=== PATIENT | female | born 1995 | race Hispanic/Latino ===

== ENCOUNTER 2024-10-21 04:12 | Observation (INO) | payer SELFPAY ==
[2024-10-21] MEDS ORDERED: ONDANSETRON 4 MG/2 ML VIAL ONE (05:03)
[2024-10-21] MEDS ORDERED: FAMOTIDINE 20 MG/2 ML VIAL IV ONE (05:03)
[2024-10-21] MEDS ORDERED: KETOROLAC 30 MG/ML INJ ONE (05:03)
[2024-10-21] MEDS ORDERED: NA CHLORIDE 0.9% 1,000 ML ONE (05:04)
[2024-10-21 05:09] LABS: Absolute Basophils 0.1 K/uL (0-0.5); Absolute Eosinophils 0.5 K/uL (0-0.5); Absolute Lymphocytes (CBC) 3.3 K/uL (0.7-4.9); Absolute Monocytes 0.9 K/uL (0.1-1.3); Absolute Neutrophil 8.5 K/uL (1.8-8.0); Basophils % 0.5 % (0-1.3); Eosinophils % 3.9 % (0-4.4); Hematocrit 39.6 % (36.0-45.0); Hemoglobin 13.6 g/dL (12.0-15.0); Lymphocytes % 24.9 % (15.3-44.8); MCHC 34.4 g/dL (32.0-36.0); MCV 87.3 fL (80-100); MPV 7.4 fL (7.6-11.3); Monocytes % 6.8 % (3.3-12.3); Neutrophils % 63.9 % (41.7-73.7); Nucleated Red Blood Cells % 0.1 % (0-0); Platelets 363 thou/uL (152-406); RBC Red Blood Cell Count 4.54 M/uL (3.86-4.86); Red Cell Distribution Width 14.3 % (12.1-15.2)
[2024-10-21 05:13] LABS: Specific Gravity 1.027 (1.005-1.030); Specific Gravity 1.028 (1.005-1.030); Sqamous Epithelial <5 /HPF (None Seen); Urine Bacteria None Seen /HPF (<20); Urine Bilirubin NEGATIVE (Negative); Urine Blood 1+ (Negative); Urine Clarity Clear (Clear); Urine Color Light-Yellow (Yellow); Urine Culture Reflex Order NOT NEEDED; Urine Glucose NEGATIVE (Negative); Urine Ketones NEGATIVE (Negative); Urine Microscopic Reflex YN ORDER UMIC; Urine Mucus Slight /HPF (None Seen); Urine Nitrite NEGATIVE (Negative); Urine Protein NEGATIVE (Negative); Urine Urobilinogen Normal (Normal); Urine WBC <5 /HPF (<5); Urine pH 5.5 (5.0-7.0)
[2024-10-21 05:30] LABS: Albumin 3.9 g/dL (3.4-5.0); Anion Gap 7.7 mEq/L (5.0-15.0); Bilirubin Total 0.3 mg/dL (0.2-1.0); Globulin 3.8 g/dL (2.3-3.5); Potassium 3.7 mEq/L (3.5-5.1); Protein, Total 7.7 g/dL (6.4-8.2)
[2024-10-21] MEDS ORDERED: droPERidol 5 MG/2 ML VIAL ONE (06:25)
--- NOTE | 2024-10-21 06:43 | RAD REPORT ---
EXAMINATION: Abdomen Pelvis W Contrast CLINICAL INDICATION: Female, 29 years old.ABD PAIN TECHNIQUE: CT abdomen and pelvis was performed, after the administration of IV contrast, as per depar count [facility]. Axial, sagittal and coronal reconstructions were obtained. One or more of the following dose reduction techniques were used: Automated exposure control, adjustment of the mA and/o r kV according to patient size, and/or iterative reconstruction. Unless otherwise specified, incidental findings do not require dedicated imaging follow-up. [id number]. COMPARISON: No prior exam. FINDINGS: LOWER CHEST: No acute process identified.No significant pericardial effusion. UPPER GI: Dilated gallbladder with cholelithiasis. No definite wall thickening or pericholecystic inf lammatory changes. There are stones in the region of the gallbladder neck. LIVER: No significant focal abnormality. GALLBLADDER/BILE DUCTS: No biliary ductal dilatation.? PANCREAS: No mass, ductal dilation, or verito-pancreatic fluid. SPLEEN: Unremarkable. ADRENALS: No adrenal masses. KIDNEYS AND URETERS: No hydronephrosis.No suspicious renal mass. ABDOMINAL AORTA AND OTHER VESSELS: Normal caliber aorta and IVC. PERITONEUM: No abnormal free fluid. No free air. LYMPH NODES: No pathologic lymphadenopathy. ABDOMINAL WALL: Unremarkable SMALL BOWEL/COLON: Small bowel has normal course and caliber. No colonic wall thickening or pericolon ic inflammatory changes. URINARY BLADDER: Underdistended but grossly unremarkable. REPRODUCTIVE ORGANS: No pathologic process. MUSCULOSKELETAL: No acute or suspicious osseous abnormality. ADDITIONAL FINDINGS: None. IMPRESSION: Cholelithiasis with dilated gallbladder and stone impacted near the gallbladder neck. No significant pericholecystic inflammatory changes however early or mild acute cholecystitis may still be present.
--- NOTE | 2024-10-21 08:25 | ER ---
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 Coronavirus screen: Client denies travel out of the [place] in the last 14 days. At this time, the client does not indicate any symptoms associated with coronavirus-19. Ebola Screen: Patient negative for fever greater than or equal to 101.5 degrees Fahrenheit, and additional compatible Ebola Virus Disease symptoms Patient denies exposure to infectious person. Patient denies travel to an Ebola-affected area in the 21 days before illness onset. No symptoms or risks identified at this time. Initial Sepsis Screen: Does the patient meet any 2 criteria? No. Patient's initial sepsis screen is negative. Does the patient have a suspected source of infection? No. Patient's initial sepsis screen is negative. Risk Assessment: Do you want to hurt yourself or someone else? Patient reports no desire to harm self or others. Onset of symptoms was October 20, 2024 at 22:00. 04:41 Method Of Arrival: Ambulatory vc1 04:41 Acuity: ASHLEY 3 vc1 Triage Assessment: 04:36 General: Appears distressed, uncomfortable, obese, well groomed, well developed, vc1 Behavior is cooperative, restless. Pain: Complains of pain in epigastric area Pain does not radiate. Pain currently is 10 out of 10 on a pain scale. Quality of pain is described as sharp, Noted to be restless, Also complains of nausea. EENT: No deficits noted. No signs and/or symptoms were reported regarding the EENT system. Neuro: Level of Consciousness is awake, alert, obeys commands, Oriented to person, place, time, situation, Appropriate for age. Cardiovascular: Heart tones S1 S2 present Capillary refill < 3 seconds Patient's skin is warm and dry. Respiratory: Airway is patent Respiratory effort is even, unlabored, Respiratory pattern is regular, symmetrical, Breath sounds are clear bilaterally. GI: Abdomen is non-distended, Reports diarrhea, epigastric pain, nausea, vomiting. : No deficits noted. No signs and/or symptoms were reported regarding the genitourinary system. Derm: Skin is intact, is healthy with good turgor, Skin is dry, Skin is normal, Skin temperature is warm. Musculoskeletal: Circulation, motion, and sensation intact. Range of motion: intact in all extremities. 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 - Infectious Disease History:: Denies. - Social history:: Smoking status: Patient denies any tobacco usage or history of. - Family history:: not pertinent. Screenin:12 [facility] ED Fall Risk Assessment (Adult) History of falling in the last 3 months, al5 including since admission No falls in past 3 months (0 pts) Confusion or Disorientation No (0 pts) Intoxicated or Sedated No (0 pts) Impaired Gait No (0 pts) Mobility Assist Device Used No (0 pt) Altered Elimination No (0 pt) Score/Fall Risk Level 0 - 2 = Low Risk Oriented to surroundings, Maintained a safe environment, Hourly rounding (assess needs \T\ fall precautionary measures) done. Abuse screen: Denies threats or abuse. Denies injuries from another. Nutritional screening: No deficits noted. Tuberculosis screening: No symptoms or risk factors identified. Assessment: 05:11 General: Appears in no apparent distress. uncomfortable, Behavior is calm, cooperative. al5 Pain: Complains of pain in epigastric area Pain currently is 8 out of 10 on a pain scale. Neuro: Level of Consciousness is awake, alert, obeys commands, Oriented to person, place, time, situation. Cardiovascular: Capillary refill < 3 seconds Patient's skin is warm and dry. Respiratory: Airway is patent Respiratory effort is even, unlabored, Respiratory pattern is regular, symmetrical. GI: Abdomen is flat, non-distended, Bowel sounds present X 4 quads. Abd is soft X 4 quads Abdomen is tender to palpation in epigastric area Reports upper abdominal pain, diarrhea, nausea, vomiting. : No signs and/or symptoms were reported regarding the genitourinary system. EENT: No signs and/or symptoms were reported regarding the EENT system. Derm: Skin is intact, is healthy with good turgor, Skin is pink, warm \T\ dry. normal. Musculoskeletal: No signs and/or symptoms reported regarding the musculoskeletal system. 06:15 Reassessment: Patient appears in no apparent distress at this time. Patient and/or al5 family updated on plan of care and expected duration. Pain level reassessed. Patient is alert, oriented x 3, equal unlabored respirations, skin warm/dry/pink. pain has decreased but pain still present. 07:43 Reassessment: Patient appears in no apparent distress at this time. No changes from kc6 previously documented assessment. Patient and/or family updated on plan of care and expected duration. Pain level reassessed. Patient is alert, oriented x 3, equal unlabored respirations, skin warm/dry/pink. 08:43 Reassessment: Patient appears in no apparent distress at this time. No changes from kc6 previously documented assessment. Patient and/or family updated on plan of care and expected duration. Pain level reassessed. Patient is alert, oriented x 3, equal unlabored respirations, skin warm/dry/pink. 09:43 Reassessment: Patient appears in no apparent distress at this time. No changes from kc6 previously documented assessment. Patient and/or family updated on plan of care and expected duration. Pain level reassessed. Patient is alert, oriented x 3, equal unlabored respirations, skin warm/dry/pink. Vital Signs: 04:41 BP 130 / 89; Pulse 66; Resp 14; Temp 98.9; Pulse Ox 100% ; Weight 78 kg; Height 5 ft. 0 vc1 in. ; Pain 10/10; 05:30 BP 117 / 72; Pulse 64; Resp 18; Pulse Ox 100% ; al5 06:00 BP 99 / 58; Pulse 59; Resp 16; Pulse Ox 100% ; al5 06:30 BP 101 / 61; Pulse 69; Resp 16; Pulse Ox 100% ; al5 06:59 BP 101 / 61; Pulse 62; Resp 18 S; Pulse Ox 100% on R/A; br2 07:43 BP 113 / 61; Pulse 60; Resp 18 S; Pulse Ox 99% on R/A; kc6 04:41 Body Mass Index 33.58 (78.00 kg, 152.4 cm) vc1 04:41 Pain Scale: Adult vc1 [place] Coma Score: 10/22 04:51 Eye Response: spontaneous(4). Motor Response: obeys commands(6). Verbal Response: sp4 oriented(5). Total: 15. ED Course: 10/21 04:15 Patient arrived in ED. jj6 04:43 Triage completed. vc1 04:44 Arm band placed on right wrist. vc1 04:49 Michele Allen MD is Attending Physician. sp4 04:50 Roxanne Brock, RN is Primary Nurse. al5 05:12 Patient has correct armband on for positive identification. Bed in low position. Call al5 light in reach. Side rails up X 1. Provided Education on: plan of care. 05:12 No provider procedures requiring assistance completed. Inserted saline lock: 20 gauge al5 in right antecubital area, using aseptic technique. Blood collected. Flushed with 10 mL NS. 06:13 CT Abd/Pelvis - IV Contrast Only In Process Unspecified. EDMS 07:00 Pulse ox on. NIBP on. Door closed. Noise minimized. Lights dimmed. Warm blanket given. kc6 Pillow given. Verbal reassurance given. 08:23 Jeremy Deluca is Hospitalizing Provider. sp4 08:44 Primary Nurse role handed off by Roxanne Brock, RN ll1 10:04 Patient admitted, IV remains in place. kc6 Administered Medications: 05:10 Drug: Famotidine IVP 20 mg IVP once; dilute with 10 mL 0.9% NaCl; give over 2 minutes al5 Route: IVP; Site: right antecubital; 07:45 Follow up: Response: No adverse reaction kc6 05:10 Drug: Ondansetron IVP 4 mg IVP once; over 2 minutes Route: IVP; Site: right antecubital;al5 07:44 Follow up: Response: No adverse reaction kc6 05:11 Drug: TORadol - Ketorolac IVP 15 mg IVP once Route: IVP; Site: right antecubital; al5 07:44 Follow up: Response: No adverse reaction kc6 05:11 Drug: NS 0.9% IV 1000 ml IV at 1 bolus Per protocol; to be given as a bolus over 60 al5 minutes Route: IV; Rate: 1 bolus; Site: right antecubital; 07:45 Follow up: Response: No adverse reaction; IV Status: Completed infusion; IV Intake: kc6 1000ml 06:30 Drug: Droperidol IVP 2.5 mg IVP once Route: IVP; Site: right antecubital; al5 07:44 Follow up: Response: No adverse reaction kc6 08:39 Drug: Piperacillin-Tazobactam IVPB 3.375 grams IVPB once over 60 mins; (mix in NS 100 kc6 mL) Route: IVPB; Infused Over: 60 mins; Site: right antecubital; 10:03 Follow up: Response: No adverse reaction; IV Status: Completed infusion; IV Intake: kc6 100ml 10:03 Drug: D5-NS IV 1000 ml IV at 125 ml/hr continuous Route: IV; Rate: 125 ml/hr; Site: kc6 right antecubital; 10:03 Follow up: Response: No adverse reaction; IV Status: Infusion continued upon admission; kc6 IV Intake: 1000ml Medication: 05:12 VIS not applicable for this client. al5 Intake: 07:45 IV: 1000ml; Total: 1000ml. kc6 10:03 IV: 100ml; Total: 1100ml. kc6 10:03 IV: 1000ml; Total: 2100ml. kc6 Outcome: 08:25 Decision to Hospitalize by Provider. sp4 10:04 Admitted to Med/surg accompanied by tech, via wheelchair, with chart, kc6 10:04 Condition: good 10:04 Instructed on the need for admit, 10:04 Patient left the ED. kc6 Signatures: Dispatcher [employer] EDMS Lilia York RN RN ll1 Gill Graves jj6 Violette Crawford RN RN vc1 Korina Moreira RN RN kc6 Michele Allen MD MD sp4 Roaxnne Brock RN RN al5 Vee Hayward RN RN br2 Corrections: (The following items were deleted from the chart) 06:49 05:29 BP 117 / 72; Pulse 64bpm; Resp 18bpm; Pulse Ox 100%; br2 al5
--- NOTE | 2024-10-21 08:25 | EDPHYS ---
Physician Documentation [facility] Name: Nathaly Yañez Age: 29 yrs Sex: Female : 1995 Arrival Date: 10/21/2024 Time: 04:12 Bed 8 Private MD: ED Physician Michele Allen HPI: 10/21 04:49 This 29 yrs old Female presents to ER via Ambulatory with complaints of sp4 Abdominal Pain. 10/22 04:51 29-year-old female presents with acute upper abdominal pain mostly on the right sp4 associated with vomiting. 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 - Infectious Disease History:: Denies. - Social history:: Smoking status: Patient denies any tobacco usage or history of. - Family history:: not pertinent. ROS: 10/22 04:51 Constitutional: Negative for fever, chills, and weight loss, positive upper abdominal sp4 pain, positive vomiting All other systems are negative, Exam: 04:51 Constitutional: This is a well developed, well nourished patient who is awake, alert, sp4 and in no acute distress. Head/Face: Normocephalic, atraumatic. Eyes: Pupils equal round and reactive to light, extra-ocular motions intact. Lids and lashes normal. Conjunctiva and sclera are not injected. Cornea within normal limits. Periorbital areas with no swelling, redness, or edema. ENT: Nares patent. No nasal discharge, no septal abnormalities noted. Tympanic membranes are normal and external auditory canals are clear. Oropharynx with no redness, swelling, or masses, exudates, or evidence of obstruction, uvula midline. Mucous membranes moist. Neck: Trachea midline, no thyromegaly or masses palpated, and no cervical lymphadenopathy. Supple, full range of motion without nuchal rigidity, or vertebral point tenderness. Chest/axilla: Normal chest wall appearance and motion. Nontender with no deformity. No lesions are appreciated. Cardiovascular: Regular rate and rhythm with a normal S1 and S2. No gallops, murmurs, or rubs. Normal PMI, no JVD. No pulse deficits. Respiratory: Lungs have equal breath sounds bilaterally, clear to auscultation and percussion. No rales, rhonchi or wheezes noted. No increased work of breathing, no retractions or nasal flaring. Abdomen/GI: Soft, with normal bowel sounds. No distension or tympany. Positive right upper abdominal tenderness with guarding Back: No spinal tenderness. No costovertebral tenderness. Skin: Warm, dry with normal turgor. Normal color with no rashes, no lesions, and no evidence of cellulitis. MS/ Extremity: Pulses equal, no cyanosis. Neurovascular intact. Full, normal range of motion. Neuro: Awake and alert, GCS 15, oriented to person, place, time, and situation. Cranial nerves II-XII grossly intact. Motor strength 5/5 in all extremities. Sensory grossly intact. Psych: Awake, alert, with orientation to person, place and time. Behavior, mood, and affect are within normal limits Vital Signs: 10/21 04:41 BP 130 / 89; Pulse 66; Resp 14; Temp 98.9; Pulse Ox 100% ; Weight 78 kg; Height 5 ft. 0 vc1 in. ; Pain 10/10; 05:30 BP 117 / 72; Pulse 64; Resp 18; Pulse Ox 100% ; al5 06:00 BP 99 / 58; Pulse 59; Resp 16; Pulse Ox 100% ; al5 06:30 BP 101 / 61; Pulse 69; Resp 16; Pulse Ox 100% ; al5 06:59 BP 101 / 61; Pulse 62; Resp 18 S; Pulse Ox 100% on R/A; br2 07:43 BP 113 / 61; Pulse 60; Resp 18 S; Pulse Ox 99% on R/A; kc6 04:41 Body Mass Index 33.58 (78.00 kg, 152.4 cm) vc1 04:41 Pain Scale: Adult vc1 [place] Coma Score: 10/22 04:51 Eye Response: spontaneous(4). Motor Response: obeys commands(6). Verbal Response: sp4 oriented(5). Total: 15. MDM: 10/21 04:50 Medical Screening Exam initiated sp4 08:15 ED course: COMPARISON: No prior exam. FINDINGS: LOWER CHEST: No acute process sp4 identified.No significant pericardial effusion. UPPER GI: Dilated gallbladder with cholelithiasis. No definite wall thickening or pericholecystic inflammatory changes. There are stones in the region of the gallbladder neck. LIVER: No significant focal abnormality. GALLBLADDER/BILE DUCTS: No biliary ductal dilatation.? PANCREAS: No mass, ductal dilation, or verito-pancreatic fluid. SPLEEN: Unremarkable. ADRENALS: No adrenal masses. KIDNEYS AND URETERS: No hydronephrosis.No suspicious renal mass. ABDOMINAL AORTA AND OTHER VESSELS: Normal caliber aorta and IVC. PERITONEUM: No abnormal free fluid. No free air. LYMPH NODES: No pathologic lymphadenopathy. ABDOMINAL WALL: Unremarkable SMALL BOWEL/COLON: Small bowel has normal course and caliber. No colonic wall thickening or pericolonic inflammatory changes. URINARY BLADDER: Underdistended but grossly unremarkable. REPRODUCTIVE ORGANS: No pathologic process. MUSCULOSKELETAL: No acute or suspicious osseous abnormality. ADDITIONAL FINDINGS: None. IMPRESSION: Cholelithiasis with dilated gallbladder and stone impacted near the gallbladder neck. No significant pericholecystic inflammatory changes however early or mild acute cholecystitis may still be present. . 10/22 04:51 Differential diagnosis: appendicitis, bowel obstruction, cholecystitis, Cholelithiasis, sp4 diverticulitis. Data reviewed: vital signs, nurses notes, lab test result(s), radiologic studies. Consideration of Admission/Observation Patient was admitted/placed on observation. Escalation of care including admission/observation considered. Management of patient was discussed with the following: Hospitalist: Admission team. 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 ED course: Stable for admission.. 10/21 04:50 Order name: CBC with Diff; Complete Time: 08:10 sp4 10/21 04:50 Order name: CMP; Complete Time: 08:10 sp4 10/21 04:50 Order name: Lipase; Complete Time: 08:10 sp4 10/21 04:50 Order name: Test, Urine; Complete Time: 08:10 sp4 10/21 04:50 Order name: Urinalysis w/ reflexes; Complete Time: 08:10 sp4 10/21 08:54 Order name: CBC with Automated Diff EDMS 10/21 08:54 Order name: CBC with Automated Diff EDMS 10/21 08:54 Order name: CBC with Automated Diff EDMS 10/21 08:54 Order name: CBC with Automated Diff EDMS 10/21 08:54 Order name: Comprehensive Metabolic Panel EDMS 10/21 08:54 Order name: Comprehensive Metabolic Panel EDMS 10/21 08:54 Order name: Comprehensive Metabolic Panel EDMS 10/21 08:54 Order name: Comprehensive Metabolic Panel EDMS 10/21 04:50 Order name: CT Abd/Pelvis - IV Contrast Only; Complete Time: 08:10 sp4 10/21 08:54 Order name: CONS Physician Consult EDMS 10/21 04:50 Order name: IV Saline Lock; Complete Time: 05:02 sp4 10/21 04:50 Order name: Labs collected and sent; Complete Time: 05:02 sp4 10/21 08:22 Order name: NPO; Complete Time: 08:25 sp4 Administered Medications: 10/21 05:10 Drug: Famotidine IVP 20 mg IVP once; dilute with 10 mL 0.9% NaCl; give over 2 minutes al5 Route: IVP; Site: right antecubital; 07:45 Follow up: Response: No adverse reaction kc6 05:10 Drug: Ondansetron IVP 4 mg IVP once; over 2 minutes Route: IVP; Site: right antecubital;al5 07:44 Follow up: Response: No adverse reaction kc6 05:11 Drug: TORadol - Ketorolac IVP 15 mg IVP once Route: IVP; Site: right antecubital; al5 07:44 Follow up: Response: No adverse reaction kc6 05:11 Drug: NS 0.9% IV 1000 ml IV at 1 bolus Per protocol; to be given as a bolus over 60 al5 minutes Route: IV; Rate: 1 bolus; Site: right antecubital; 07:45 Follow up: Response: No adverse reaction; IV Status: Completed infusion; IV Intake: kc6 1000ml 06:30 Drug: Droperidol IVP 2.5 mg IVP once Route: IVP; Site: right antecubital; al5 07:44 Follow up: Response: No adverse reaction kc6 08:39 Drug: Piperacillin-Tazobactam IVPB 3.375 grams IVPB once over 60 mins; (mix in NS 100 kc6 mL) Route: IVPB; Infused Over: 60 mins; Site: right antecubital; 10:03 Follow up: Response: No adverse reaction; IV Status: Completed infusion; IV Intake: kc6 100ml 10:03 Drug: D5-NS IV 1000 ml IV at 125 ml/hr continuous Route: IV; Rate: 125 ml/hr; Site: kc6 right antecubital; 10:03 Follow up: Response: No adverse reaction; IV Status: Infusion continued upon admission; kc6 IV Intake: 1000ml Disposition: 10/22 04:51 Chart complete. sp4 Disposition Summary: 10/21/24 08:25 Hospitalization Ordered Notes: Hospitalization Status: Observation sp4 Provider: Jeremy Deluca sp4 Location: Telemetry/MedSur (observation) sp4 Condition: Stable sp4 Problem: new sp4 Symptoms: have improved sp4 Bed/Room Type: Standard sp4 Room Assignment: 218(10/21/24 09:09) sp Diagnosis - Other cholelithiasis with obstruction sp4 - Acute cholecystitis sp4 Forms: - Medication Reconciliation Form sp4 - SBAR form sp4 - Leadership Thank You Letter sp4 Signatures: Dispatcher [employer] EDMS Cris Vivar Vanessa RN RN vc1 Korina Moreira RN RN kc6 Michele Allen MD MD sp4 Roxanne Brock RN RN al5 Corrections: (The following items were deleted from the chart) 10/21 04:50 04:50 CBC+H.LAB.BRZ ordered. EDMS EDMS 04:50 04:50 COMPREHENSIVE METABOLIC PANEL+C.LAB.BRZ ordered. EDMS EDMS 04:50 04:50 LIPASE+C.LAB.BRZ ordered. EDMS EDMS 04:50 04:50 Test, Urine+UC.LAB.BRZ ordered. EDMS EDMS 04:50 04:50 Urinalysis+U.LAB.BRZ ordered. EDMS EDMS 04:50 04:50 Abdomen Pelvis W Con+CT.RAD.BRZ ordered. EDMS EDMS 09:09 08:25 sp4 sp
[2024-10-21] MEDS ORDERED: D5 0.9 NS 1,000 ML IV ONE (08:29)
[2024-10-21] MEDS ORDERED: PIPERACIL/TAZO 3.375 GM VIAL IV ONE (08:29)
[2024-10-21] MEDS ORDERED: NA CHLORIDE 0.9% 100 ML ONE (08:29)
[2024-10-21] MEDS ORDERED: ONDANSETRON 4 MG/2 ML VIAL IV PRN (08:50)
[2024-10-21] MEDS ORDERED: MORPHINE 2 MG/ML SYR IV PRN (08:50)
[2024-10-21] MEDS ORDERED: NA CHLORIDE 0.9% 1,000 ML IV SCH (09:00)
--- NOTE | 2024-10-21 09:01 | P.HP ---
Certification for Inpatient Patient admitted to: Observation With expected LOS: <2 Midnights Patient will require the following post-hospital care: None Practitioner: I am a practitioner with admitting privileges, knowledge of patient current condition, hospital course, and medical plan of care. Services: Services provided to patient in accordance with Admission requirements found in Title 42 Section 412.3 of the Code of Federal Regulations Patient History Date of Service: 10/21/24 Reason for admission: Abdominal pain History of Present Illness: Patient is a 29-year-old female came to the hospital with abdominal pain. Pain was in the epigastric region. Started last night and it was after she had a fatty meal. She has had a similar pain 3 months ago but that went away on its own. However, this pain was not going away so she came into the emergency room. Patient had workup done in the emergency room and workup revealed acute cholecystitis. At this time, patient will be admitted to the hospital for observation. Her LFTs are normal. She has mild acute cholecystitis on imaging studies. She has no medical history. Will speak with general surgery and get a game plan for surgical intervention versus conservative management. If she does have her surgery today then anticipate discharge in a.m. Patient will be admitted for observation. - Past Medical/Surgical History -: None -: None - Family History Father Family History: Reviewed- Non-Contributory - Social History Smoking Status: Never smoker Alcohol use: No CD- Drugs: No Review of Systems 10-point ROS is otherwise unremarkable Physical Examination - Vital Signs Temperature: 98 F Blood Pressure: 120/70 Pulse: 80 Respirations: 18 Pulse Ox (%): 95 - Physical Exam General: Alert, In no apparent distress, Oriented x3 HEENT: Atraumatic, PERRLA, Mucous membr. moist/pink, EOMI, Sclerae nonicteric Neck: Supple, 2+ carotid pulse no bruit, No LAD, Without JVD or thyroid abnormality Respiratory: Clear to auscultation bilaterally, Normal air movement Cardiovascular: Regular rate/rhythm, Normal S1 S2 Gastrointestinal: Normal bowel sounds, Hypoactive, No rebound, No guarding, Other (Farley's sign) Musculoskeletal: No tenderness Integumentary: No rashes Neurological: Normal gait, Normal speech, Normal strength at 5/5 x4 extr, Normal tone, Sensation intact, Cranial nerves 3-12 intact, Normal affect Lymphatics: No axilla or inguinal lymphadenopathy - Studies Laboratory Data (last 24 hrs) 10/21/24 10/21/24 04:58 04:58 WBC 13.30 H Hgb 13.6 Hct 39.6 Plt Count 363 Sodium 140 Potassium 3.7 BUN 13 Creatinine 0.95 Glucose 104 Total Bilirubin 0.3 AST 13 L ALT 26 Alkaline Phosphatase 102 Lipase 25 Assessment & Plan - Problems (Diagnosis) (1) Acute cholecystitis Current Visit: Yes Status: Acute - Plan Plan: 1. N.p.o. for surgical evaluation. Patient with no other chronic morbidities. Continue with IV fluids and IV antibiotics. Patient low risk for any cardiopulmonary complications postoperatively. Will monitor closely and if patient does well after surgery she possibly could go home after recovery. Will discuss the case with surgery after possible surgical intervention. At this time, patient will be admitted for observation. Discharge Plan: Home Plan to discharge in: 24 Hours - Advance Directives Does patient have a Living Will: No Does patient have a Durable POA for Healthcare: No - Code Status/Comfort Care Code Status Assessed: Yes Code Status: Full Code Critical Care: No Time Spent Managing PTS Care (In Minutes): 40
[2024-10-21 10:30] VITALS: O2SAT 99
[2024-10-21 10:33] VITALS: BP 121/69; TEMP 98.4
[2024-10-21] MEDS ORDERED: PIPER TAZO 3.375 GM in NA CHLORIDE 0.9% 100 ML IV SCH (17:00)
== END 2024-10-21 10:30 | disposition left against medical advice (07) ==
LOC: ER 04:12 → 2ND 08:50
PROVIDERS: ADMIT Hospitalist; ATTEND Hospitalist
DX: K80.00 Calculus of gallbladder with acute cholecystitis without obstruction (principal); R10.13 Epigastric pain
CPT/HCPCS: 36415; 74177; 80053; 81001; 81025; 83690; 85025; 96361; 96365; 96375; 99285; G0378; J1790; J2405; J2543; J7030; J7042; Q9967